=== PATIENT | female | born 1985 | race African-American/Black ===

== ENCOUNTER 2019-02-15 07:12 | Emergency (ER) | payer MEDICAID ==
[~2019-02-15] VITALS: Ht 172.7 cm; Wt 74.0 kg
[2019-02-15] MEDS ORDERED: BACITRACIN ZINC OINT UDPKT TOP ONE (08:15)
[2019-02-15] MEDS ORDERED: TETANUS, DIPHTHERIA, PERTUSSIS VAC/PF 0.5ML (>7YR OLD) IM ONE (08:15)
[2019-02-15] MEDS ORDERED: HYDROCODONE/ACETAMINOPHEN 5/325MG TABLET PO ONE (08:15)
[2019-02-15 08:23] VITALS: BP 130/80
== END 2019-02-15 09:40 | disposition home or self-care (01) ==
LOC: ER 07:12
DX: S02.2XXA Fracture of nasal bones, initial encounter for closed fracture (principal); S00.83XA Contusion of other part of head, initial encounter; R51 Headache; M54.2 Cervicalgia; F12.10 Cannabis abuse, uncomplicated; V49.88XA Car occupant (driver) (passenger) injured in other specified transport accidents, initial encounter; Y93.89 Activity, other specified; Y92.89 Other specified places as the place of occurrence of the external cause; Y99.8 Other external cause status
CPT/HCPCS: 70486; 81025; 90471; 90715; 99283